=== PATIENT | male | born 1970 | race Hispanic/Latino ===

== ENCOUNTER 2020-02-03 06:21 | Outpatient (CLI) | payer OTHER ==
[2020-02-03 09:12] LABS: #Eosinphils 0.1 10x3/uL (0.0-0.5); #Monocytes 0.5 10x3/uL (0.0-1.1); #Neutrophils 3.3 10x3/uL (1.5-8.4); %Basophils 0.5 % (0.0-2.0); %Eosinophils 1.8 % (0.0-6.0); %Lymphocytes 28.7 % (18.0-47.0); %Monocytes 9.1 % (0.0-10.0); %Neutrophils 59.5 % (40.0-75.0); Hemoglobin 16.1 g/dL (14.0-18.0); Mean Corpuscular Hemoglobin 27.9 PG (27.0-33.0); Mean Platelet Volume 9.3 fl (7.4-10.4); Platelet Count 228 10x3/uL (130-400); RBC Distribution Width 12.6 % (11.5-14.5); Red Blood Cell (RBC) Count 5.77 10x6/uL (4.40-5.80); White Blood Cell (WBC) Count 5.6 10x3/uL (4.5-11.0)
[2020-02-03 09:18] LABS: Anion Gap 19 mmol/L (10-20); BUN (Urea Nitrogen) 16 mg/dL (8.9-20.6); Calc. Creatinine Clearance 0 mL/min (70-130); Calcium 9.1 mg/dL (7.8-10.44); Carbon Dioxide 20 mmol/L (22-29); Chloride 106 mmol/L (98-107); Estimated GFR-MDRD 68; Glucose 93 mg/dL (70-105); Potassium 4.4 mmol/L (3.5-5.1); Sodium 141 mmol/L (136-145)
[2020-02-04 12:56] LABS: SARS-CoV-2 MS2 Positive; SARS-CoV-2 N Gene Negative; SARS-CoV-2 S Gene Negative; SARS-CoV-2 by NAA Not Detected (NotDetected); SARS-CoV-2 orf1ab Negative
== END 2020-02-03 06:22 | disposition home or self-care (01) ==
LOC: LABBT 06:21
PROVIDERS: ATTEND Specialist
DX: Z01.812 Encounter for preprocedural laboratory examination (principal); Z20.828 Contact with and (suspected) exposure to other viral communicable diseases; K40.20 Bilateral inguinal hernia, without obstruction or gangrene, not specified as recurrent
CPT/HCPCS: 80048; 85025; 87635; U0003

== ENCOUNTER 2020-02-06 09:56 | Day surgery (SDC) | payer OTHER ==
[2020-02-05 09:35] VITALS: BMI 29.7
[2020-02-06] MEDS ORDERED: EPHEDRINE 25 MG/5 ML SYRINGE ONE (10:02)
[2020-02-06] MEDS ORDERED: Lidocaine 1% PF 5 ML VIAL ONE (10:02)
[2020-02-06] MEDS ORDERED: Ondansetron PF 4 MG/2 ML Vial ONE (10:02)
[2020-02-06] MEDS ORDERED: Rocuronium Bromide 10 MG/ML (10ML VIAL) ONE (10:02)
[2020-02-06] MEDS ORDERED: PROPOFOL 200 MG/20 ML VIAL ONE (10:02)
[2020-02-06] MEDS ORDERED: PHENYLEPHRINE-NS 100 MCG/ML 10 ML SYRINGE ONE (10:02)
[2020-02-06] MEDS ORDERED: Glycopyrrolate 0.2 MG/ML 5 ML SYRINGE ONE (10:02)
[2020-02-06] MEDS ORDERED: Dexamethasone 20 MG/5 ML VIAL ONE (10:02)
[2020-02-06] MEDS ORDERED: Acetaminophen 500 MG TAB ONE (11:02)
[2020-02-06] MEDS ORDERED: Ketorolac Tromethamine 30 MG/ML VIAL ONE (11:02)
[2020-02-06] MEDS ORDERED: Fentanyl 100 MCG/2 ML VIAL ONE ×2 (12:12→16:08)
[2020-02-06] MEDS ORDERED: Bupivacaine 0.25% HCL 30 ML VIAL ONE (12:44)
[2020-02-06] MEDS ORDERED: Lidocaine 1% w/Epinephrine 1:100K 20 ML VIAL ONE (12:44)
[2020-02-06] MEDS ORDERED: Morphine 4 MG/ML VIAL ONE (16:24)
[2020-02-06] MEDS ORDERED: HYDROcodone/Acetaminophen 5/325 mg Tablet ONE (16:59)
--- NOTE | 2020-02-07 14:17 | OP ---
DATE OF PROCEDURE: 02/06/2020 PREOPERATIVE DIAGNOSIS: Recurrent bilateral inguinal hernia. POSTOPERATIVE DIAGNOSIS: Recurrent bilateral inguinal hernia with finding of a direct inguinal hernia bilaterally. PROCEDURE PERFORMED: Robotic-assisted bilateral inguinal hernia repair with 3DMax mesh. ANESTHESIA: General endotracheal. INDICATIONS: The patient is a 60 year old male who had bilateral inguinal hernia repair in [facility]. One of these was as a child on his right side and one was about 15 to 20 years ago on the left side. Neither of these was performed with mesh. The patient has a large obvious left inguinal hernia that is symptomatic. He has a palpable right inguinal hernia and I have recommended bilateral inguinal hernia repair robotically. DESCRIPTION OF OPERATION: Informed consent was obtained. The patient was taken to the operating room, where general endotracheal anesthesia was obtained with the patient in supine position. A Parra catheter was placed. Abdomen was prepped with ChloraPrep and draped in sterile fashion. The patient had an infraumbilical incision. I therefore created my initial incision a couple of centimeters superior to the umbilicus. Local anesthetic was infiltrated first using 0.25% Marcaine with epinephrine. A Veress needle was passed through this incision into the peritoneal cavity. Pneumoperitoneum was established using carbon dioxide up to pressure of 15 mmHg. An 11 mm balloon-tipped trocar port was passed and the camera was passed this port. Under direct vision, I placed two 8 mm robotic ports on either side of midline at the supraumbilical level. The robot was docked to the 3 ports and the camera and operation was continued from the robotic console. I first explored the pelvis bilaterally. There was an obvious left inguinal hernia with fatty tissue herniated into the hernia defect that was easily mobilized out of the defect. There were no incarcerated contents. On the right side, there was a defect that appeared to be a direct defect. There was obvious scarring on the left side, but no obvious scarring on the right side from the prior surgery. Attention was turned first to the right. A transverse peritoneal incision was created several centimeters superior to the defect and preperitoneal dissection was carried inferiorly. The pubic tubercle was dissected medially. The iliopubic tract was dissected laterally. In the midportion, the cord structures were carefully dissected such that the peritoneum was dissected off them. The patient had a substantial very obvious direct defect just above the Jarek ligament and medial to the epigastric vessels. There was a substantial volume of preperitoneal fatty tissue herniated into this that was reduced. The defect was dissected carefully. A large 3DMax mesh patch was obtained and placed in the preperitoneal space, where it was secured in place with 3 interrupted of 2-0 Vicryl. One of these was secured to the medial aspect of the tubercle to insure adequate coverage over the direct defect. The other two sutures were placed to the anterior aspect of the mesh, one medial and one lateral to the epigastric vessels. The peritoneum was then closed with a running suture of 3-0 Stratafix. Attention was turned to the left side. A mirror image incision was created and dissection was carried inferiorly in the same fashion. I again dissected the iliopubic tract in the pubic tubercle and Jarek ligament. The patient had a large recurrent direct hernia. There was a substantial volume of incarcerated fat within the direct defect. I had to incise the transversalis fascia to be able to reduce the fatty tissue and even with this, reduction of all contents was much more difficult than typical. There was some bleeding from the fatty tissue that was controlled quickly with electrocautery. Once all contents were reduced, the defect was dissected such that the fascia was visible circumferentially. This was again a very medial defect. The peritoneum was dissected and cleared of the cord structures medial to lateral. A 3DMax large mesh patch was obtained and placed within the preperitoneal space, where it was secured in place with 3 interrupted 2-0 Vicryl. As with the other side, one was placed to the pubic tubercle medially. The other two were placed to the anterior abdominal wall, one medial and one lateral to the epigastric vessels. The peritoneum was then closed with a running suture of 3-0 Stratafix. Closure of this was more challenging; therefore, would go ahead and had to use 2 sutures, one closed from medial and one closed from lateral and I utilized some of the herniated fatty tissue to buttress the closure. The fascial defect at the 11 mm port site was closed with 0 Vicryl suture using a GraNee needle. All ports were removed under direct vision. Pneumoperitoneum was carefully evacuated. Blood loss had been negligible. There were no complications. The patient tolerated the procedure well. His bladder was backfilled with 200 mL of saline at the end of the operation to ensure that he was able to void in the postoperative period. Taken to recovery room in stable condition. Job ID: [id number] [id number]
== END 2020-02-06 18:09 | disposition home or self-care (01) ==
LOC: SDC 09:56
PROVIDERS: ATTEND Specialist
PROC: 0YUA4JZ Supplement Bilateral Inguinal Region with Synthetic Substitute, Percutaneous Endoscopic Approach (ICD-10-PCS; principal; 2020-02-06)
DX: K40.01 Bilateral inguinal hernia, with obstruction, without gangrene, recurrent (principal); M19.90 Unspecified osteoarthritis, unspecified site; Z79.899 Other long term (current) drug therapy
CPT/HCPCS: C1781; J0690; J1100; J1885; J2270; J2405; J2704; J3010; S0020

== ENCOUNTER 2020-11-09 08:15 | Outpatient (CLI) | payer OTHER ==
[2020-11-09 10:04] LABS: Prothrombin Time 11.4 sec (9.5-12.1)
[2020-11-09 10:06] LABS: Anion Gap 12 mmol/L (10-20); BUN (Urea Nitrogen) 18 mg/dL (8.9-20.6); Calc. Creatinine Clearance 0 mL/min (70-130); Carbon Dioxide 27 mmol/L (22-29); Chloride 106 mmol/L (98-107); Glucose 86 mg/dL (70-105); Potassium 4.5 mmol/L (3.5-5.1); Sodium 140 mmol/L (136-145)
[2020-11-09 10:59] LABS: Mean Corpuscular HGB CONC 33.9 g/dL (32.0-36.0); Mean Corpuscular Hemoglobin 28.1 pg (27.0-33.0); Mean Corpuscular Volume 83.1 fl (81.2-95.1); Mean Platelet Volume 9.7 fl (7.4-10.4); Platelet Count 224 10x3/uL (150-450); RBC Distribution Width 13.4 % (11.5-14.5); Red Blood Cell (RBC) Count 5.33 10x6/uL (4.32-5.72); White Blood Cell (WBC) Count 5.6 10x3/uL (3.5-10.5)
[2020-11-09 21:10] LABS: SARS-CoV-2 PCR by NAA Not Detected (NotDetected)
== END 2020-11-09 08:16 | disposition home or self-care (01) ==
LOC: LABBT 08:15
PROVIDERS: ATTEND Internal Medicine Cardiovascular Disease
DX: Z01.812 Encounter for preprocedural laboratory examination (principal); I48.4 Atypical atrial flutter; Z20.822 Contact with and (suspected) exposure to COVID-19
CPT/HCPCS: 80048; 85027; 85610; U0003; U0005